=== PATIENT | female | born 2000 | race Hispanic/Latino ===

== ENCOUNTER 2018-10-05 01:19 | Emergency (ER) | payer BC, OTHER ==
--- NOTE | 2018-10-05 03:03 | C.PDOC ---
History Of Present Illness 17 y/o female brought in by ambulance for evaluation s/p syncopal episode. Patient states she was at a green party, smoking marijuana, when she suddenly passed out. She believes someone caught her fall, and there was no head trauma. Denies any alcohol use or other drug use. Patient reports feeling hot and claustrophobic just prior to syncope. She denies any dizziness, visual changes, chest pain, SOB, nausea, vomiting, abdominal pain, weakness, numbness, or tingling. Patient's only complaint is a mild headache. Her friends at bedside admit to smoking the same marijuana, with no symptoms. Time Seen by Provider: 10/05/18 02:36 Chief Complaint (Nursing): Substance Abuse History Per: Patient History/Exam Limitations: no limitations Onset/Duration Of Symptoms: Mins Current Symptoms Are (Timing): Gone Suicide/Self Injury Attempted (Context): None Modifying Factor(s): Marijuana Involuntary Hold By: None Recent travel outside of the [place]: No Additional History Per: EMS, Family Past Medical History Reviewed: Historical Data, Nursing Documentation, Vital Signs Vital Signs: Last Vital Signs Temp 98.6 F 10/05/18 01:19 Pulse 100 H 10/05/18 01:19 Resp 18 10/05/18 01:19 BP 128/83 10/05/18 01:19 Pulse Ox 100 10/05/18 01:19 - Medical History PMH: Anxiety (taking Celexa) Family History: States: No Known Family Hx - Social History Hx Alcohol Use: Yes Hx Substance Use: Yes - Immunization History Hx Tetanus Toxoid Vaccination: No Hx Influenza Vaccination: No Hx Pneumococcal Vaccination: No Review Of Systems Constitutional: Negative for: Fever, Chills, Sweats Eyes: Negative for: Vision Change Cardiovascular: Negative for: Chest Pain, Palpitations Respiratory: Negative for: Shortness of Breath Gastrointestinal: Negative for: Nausea, Vomiting, Abdominal Pain Musculoskeletal: Negative for: Back Pain Skin: Negative for: Lesions, Bruising Neurological: Positive for: Headache (mild), Other (Syncope). Negative for: Weakness, Numbness, Incoordination, Change in Speech, Dizziness Psych: Positive for: Other (Marijuana use) Physical Exam - Physical Exam Appears: Well, Non-toxic, No Acute Distress Skin: Warm, Dry Head: Atraumatic, Normacephalic Eye(s): bilateral: Normal Inspection, PERRL, EOMI Ear(s): Bilateral: Normal (no hemotympanum) Nose: Normal, No Deformity, No Septal Hematoma Oral Mucosa: Moist Neck: Normal ROM Chest: Symmetrical Cardiovascular: Rhythm Regular, No Murmur Respiratory: Normal Breath Sounds, No Rales, No Rhonchi, No Wheezing Gastrointestinal/Abdominal: Soft, No Tenderness, No Distention Extremity: Normal ROM, No Deformity, No Swelling Pulses: Left Dorsalis Pedis: Normal, Right Dorsalis Pedis: Normal Neurological/Psych: Oriented x3, Normal Speech, Normal Cranial Nerves, Other (No focal deficits) Gait: Steady ED Course And Treatment O2 Sat by Pulse Oximetry: 100 (RA) Pulse Ox Interpretation: Normal Medical Decision Making Medical Decision Making: Plan: Patient remains AAOx3, with no pain, and in no acute distress throughout ER stay. 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 Counseled regarding diagnosis and course of discharge. Return precautions discussed. On re-exam, the patient reports improvement of symptoms. Lungs are CTA, heart is RRR, abdomen is soft, non-tender and the patient is tolerating PO well. Pt is ambulatory in the ED with steady gait. Disposition - Disposition Referrals: [facility] [Outside] Disposition: HOME/ ROUTINE Disposition Time: 03:01 Condition: STABLE Additional Instructions: Follow up with the medical doctor within 1-2 days. Return if worsened. 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 - Scribe Statement The provider has reviewed the documentation as recorded by the Scribjusto Thomason All medical record entries made by the Aidanibe were at my direction and personally dictated by me. I have reviewed the chart and agree that the record accurately reflects my personal performance of the history, physical exam, medical decision making, and the department course for this patient. I have also personally directed, reviewed, and agree with the discharge instructions and disposition.
[2018-10-05 03:19] VITALS: BP 120/76; PULSE 93; RESP 20; TEMP 97.8
[2018-10-05 06:41] VITALS: O2SAT 100
== END 2018-10-05 03:18 | disposition home or self-care (01) ==
LOC: C.ER 01:19
DX: F12.90 Cannabis use, unspecified, uncomplicated (principal)